=== PATIENT | female | born 1975 | race Caucasian/White ===

== ENCOUNTER 2020-12-25 13:15 | Emergency (ER) | payer MEDICAID ==
[~2020-12-25] VITALS: Ht 154.9 cm; Wt 61.4 kg
[2020-12-25] MEDS ORDERED: CefTRIAXone 1000mg IM Kit (w/lidocaine diluent) IM ONE (13:45)
[2020-12-25] MEDS ORDERED: DOXY100C76 PO (13:55)
--- NOTE | 2020-12-25 14:38 | NUR ---
CONFIRMED WITH LAB THAT LAB JUST RECEIVED URINE
[2020-12-25 14:44] VITALS: BP 119/64
[2020-12-25 14:58] LABS: CLARITY,URINE SLIGHTLY CLOUDY (Clear); COLOR,URINE STRAW (Yellow); GLUCOSE, URINE NEGATIVE (Neg); KETONES,URINE NEGATIVE (Neg); LEUKOCYTE ESTERASE ,URINE MODERATE (Neg); NITRITES, URINE NEGATIVE (Neg); OCCULT BLOOD,URINE NEGATIVE (Neg); PROTEIN,URINE NEGATIVE (Neg); UROBILINOGEN,URINE 0.2 E.U/dL (0.2-1.0)
[2020-12-25 15:01] LABS: URINE HCG NEGATIVE (NEG)
[2020-12-25 15:03] LABS: UA COLLECTION TYPE CLN CATCH MIDSTREAM
[2020-12-25 15:14] LABS: BACTERIA,URINE 1+ /HPF (Neg); SQUAMOUS EPITHELIAL CELL,UR MANY /LPF (FEW)
[2020-12-25 15:15] LABS: RBC,URINE 0-2 /HPF (0-2)
== END 2020-12-25 14:40 | disposition home or self-care (01) ==
LOC: ER 13:16
DX: Z20.2 Contact with and (suspected) exposure to infections with a predominantly sexual mode of transmission (principal); R30.0 Dysuria; R30.9 Painful micturition, unspecified; N89.8 Other specified noninflammatory disorders of vagina; F17.200 Nicotine dependence, unspecified, uncomplicated; F15.90 Other stimulant use, unspecified, uncomplicated; F11.90 Opioid use, unspecified, uncomplicated; Z72.89 Other problems related to lifestyle; Z79.2 Long term (current) use of antibiotics
CPT/HCPCS: 36415; 81001; 81025; 87491; 87591; 96372; 99283; J0696

== ENCOUNTER 2021-10-14 17:01 | Emergency (ER) | payer MEDICAID ==
[~2021-10-14] VITALS: Ht 154.9 cm; Wt 56.8 kg
[~2021-10-14 17:01] MED LIST: LIDOcaine 1% W/epiNEPHrine 1:100,000 20ml vial ONE
[2021-10-14] MEDS ORDERED: ketorolac tromethamine 15mg/ml inj. IM ONE (20:05)
[2021-10-14] MEDS ORDERED: LIDOcaine 1% W/epiNEPHrine 1:100,000 20ml vial IJ ONE (20:05)
[2021-10-14] MEDS ORDERED: LIDOcaine 1% W/epiNEPHrine 1:200,000 10ml vial IJ ONE (20:05)
[2021-10-14] MEDS ORDERED: amox tr/potassium clavulanate 875/125mg TAB PO ONE (20:05)
[2021-10-14 20:17] VITALS: BP 137/96
[2021-10-14] MEDS ORDERED: TETanus/Pertussis (Acell)/Diphther VAC/PF (Tdap-Adult) 0.5ml syringe IMVAC ONE (20:25)
[2021-10-14] MEDS ORDERED: IBUP-1984 PO (20:28)
[2021-10-14] MEDS ORDERED: AMOX-422 PO (20:28)
== END 2021-10-14 20:46 | disposition home or self-care (01) ==
LOC: ER 17:02
DX: L03.114 Cellulitis of left upper limb (principal); F15.90 Other stimulant use, unspecified, uncomplicated; F11.90 Opioid use, unspecified, uncomplicated; Z72.89 Other problems related to lifestyle; Z59.00 Homelessness unspecified; Z79.2 Long term (current) use of antibiotics; Z79.899 Other long term (current) drug therapy; W50.3XXA Accidental bite by another person, initial encounter; Y93.89 Activity, other specified; Y92.89 Other specified places as the place of occurrence of the external cause; Y99.8 Other external cause status
CPT/HCPCS: 10060; 90471; 90715; 96372; 99284; J1885; J3490